=== PATIENT | male | born 1955 | race Caucasian/White ===

== ENCOUNTER 2016-08-09 04:14 | Inpatient (IN) | payer OTHER ==
[~2016-08-09] VITALS: Ht 170.2 cm; Wt 63.4 kg
[~2016-08-09 04:14] MED LIST: BECL8.7A5 INH
[2016-08-09] MEDS ORDERED: ACETAMINOPHEN 325 MG TAB PO PRN (05:00)
[2016-08-09] MEDS ORDERED: ONDANSETRON 4 MG INJ IV PRN (05:00)
[2016-08-09] MEDS ORDERED: NACL 0.9% 3 ML SYG IV SCH (05:00)
[2016-08-09] MEDS ORDERED: DOCUSATE SODIUM 100 MG CAP PO PRN (05:00)
[2016-08-09] MEDS ORDERED: VANCOMYCIN IV PER PHARMACY XX SCH (05:00)
[2016-08-09 05:15] VITALS: BP 132/73; PULSE 54; RESP 20; Ht 170.2 cm; Wt 63.4 kg
--- NOTE | 2016-08-09 05:16 | HP ---
Date/Time of Note Date/Time of Note DATE: 08/09/16 TIME: 05:08 Assessment/Plan VTE Prophylaxis VTE Prophylaxis Intervention: heparin Assessment/Plan Assessment/Plan 60 yo male with a past medical history of asthma, who presents with right leg pain and redness. 1. Right lower extremity - cellulitis/abscess - will admit the patient to med/ surg, continue with IV antibiotics, f/u cultures from [facility], pain management, if worsening consider MRI and consult to podiatry/ID. 2. Asthma - mild intermittent - prn albuterol 3. GI ppx - pepcid 4. DVT ppx - heparin answered all of his questions. as per clinical course. this history and physical took greater then 45 minutes to complete HPI/ROS Admit Date/Time Admit Date/Time Aug 09, 2016 at 04:14 Hx of Present Illness 60 yo male with a past medical history of asthma, who presents with right leg pain and redness. The pain is 10/10, surrounding his lower leg, with redness that has been going on for the last 10 days. 10 days prior to admission, the patient had slipped and sustained a fall causing him to hit his leg against a pipe in the bathroom. He noticed erythema and swelling. Went to ER in [facility], was prescribed keflex and sent home. He did better initially, but noticed that it got worse. He went back to the ER 7 days later, and had been prescribed Clindamycin. 2 days after that, currently, the swelling and redness did not subside. He went to [facility], had been seen by the ER there, transferred to [facility] for insurance purposes. Subsequently has chills. Otherwise denies any chest pain, shortness of breath, loss of consciousness, headaches, urinary/bowel irregularities, fevers or other constitutional symptoms. [facility] Labs: H/H: 12.9/38.6, WBC: 9.3 CT Right lower extremity - focal soft tissue swelling in the anterior aspect of the right lower extremity distal tibia with focal collection of fluid - that was I and D in the ER. CXR: no acute cardiopulmonary disease ROS 14 point review of systems completed, please refer to HPI for any positive findings PMH/Family/Social Past Medical History Asthma Past Surgical History meniscal repairs x 2, finger repair Family History Significant Family History: no pertinent family hx Social History Alcohol Use: none Smoking Status: Current every day smoker Drug Use: none Exam/Review of Systems Exam Exam Gen Lisbeth: moderate distress 2/2 to right sarabia pain, AAOx4 HEENT: NC/AT, PERRLA, EOMI, no pharyngeal erythema, no tonsillar exudates, no lymphadenopathy, no JVD, no carotid bruits NECK: supple, no thyromegaly THORAX: symmetrical, no obvious deformities CV: S1S2, RRR, no M/G/R Lungs: CTAB no W/C/R/R Abd: soft, NT/ND, +BS, no rebound, no guarding, neg HSM EXT: right sarabia erythema, has serous sanguineous fluid draining, no purulent discharge noted, warmth to touch, left leg within normal limits Neuro: CN II-XII grossly intact, no focal deficits Psych: good mentation, alert and oriented, good mood and affect Skin: C/D/I Medications Medications Current Medications Ondansetron HCl (Zofran Inj) 4 mg Q6H PRN IV NAUSEA AND/OR VOMITING; Start at 05:00 Acetaminophen (Tylenol Tab) 650 mg Q6H PRN PO PAIN LEVEL 1-3 OR FEVER; Start at 05:00 Acetaminophen/ Hydrocodone Bitart ([place] (5/325)) 1 tab Q6H PRN PO MODERATE PAIN LEVEL 4-6; Start 08/09/16 at 05:00 Morphine Sulfate (morphine) 2 mg Q4H PRN IV SEVERE PAIN LEVEL 7-10; Start 08/09 at 05:00 Docusate Sodium (Colace) 100 mg Q12H PRN PO CONSTIPATION; Start 08/09/16 at 05: 00 Famotidine (Pepcid) 20 mg Q12 PO ; Start 08/09/16 at 09:00 Heparin Sodium (Porcine) 5000 unit 5,000 unit Q12 SC ; Start 08/09/16 at 09:00 Piperacillin Sod/ Tazobactam Sod (Zosyn 3.375gm/ 100 ml (Pmx)) 100 ml @ 200 mls /hr Q6 IVPB ; Start 08/09/16 at 06:00 JENISE SANCHEZ MD Aug 09, 2016 05:16
[2016-08-09] MEDS: morphine 2 MG INJ IV PRN ×5 (05:21→22:42)
[2016-08-09] MEDS: PIPER-TAZO 3.375 GM IV (PMX) 100 ML IVPB SCH ×4 (05:22→23:14)
[2016-08-09] MEDS ORDERED: VANCOMYCIN 1 GM in NS 250 ML IVPB SCH (06:00)
[2016-08-09] MEDS ORDERED: INFLUENZA VIRUS VACCINE 0.5 ML SYG IM* ONE (07:30)
[2016-08-09 07:33] VITALS: BP 124/58; RESP 18
[2016-08-09] MEDS: HYDROCODONE/APAP (5/325) TAB PO PRN ×3 (09:13→21:28)
[2016-08-09] MEDS: HEPARIN 5,000 UNIT/0.5 ML SYG SC SCH ×2 (09:14→20:20)
[2016-08-09] MEDS: FAMOTIDINE 20 MG TAB PO SCH ×2 (09:14→20:19)
[2016-08-09 11:22] VITALS: RESP 18
[2016-08-09 20:25] VITALS: BP 109/59; RESP 21
[2016-08-10] MEDS: morphine 2 MG INJ IV PRN ×5 (03:28→21:40)
[2016-08-10] MEDS: PIPER-TAZO 3.375 GM IV (PMX) 100 ML IVPB SCH ×4 (05:26→23:22)
[2016-08-10 05:55] LABS: ALBUMIN 3.2 g/dl (3.3-4.9)
[2016-08-10 05:56] LABS: POTASSIUM 4.1 mmol/L (3.5-5.1)
[2016-08-10 05:58] LABS: BILIRUBIN,INDIRECT 0.3 mg/dl (0-1.1); BILIRUBIN,TOTAL 0.3 mg/dl (0.2-1.3); CREATININE 0.79 mg/dl (0.61-1.24)
[2016-08-10 05:59] LABS: ALBUMIN/GLOBULIN RATIO 1.28; CALCIUM 8.8 mg/dl (8.4-10.2); TOTAL PROTEIN 5.7 g/dl (6.1-8.1)
[2016-08-10 07:03] LABS: BASOPHILS % 1.1 % (0.0-2.0); EOSINOPHILS # 0.1 10^3/ul (0.0-0.5); EOSINOPHILS % 2.9 % (0.0-7.0); HEMATOCRIT 34.5 % (42.0-52.0); HEMOGLOBIN 11.5 g/dl (14.0-18.0); LYMPHOCYTES # 1.3 10^3/ul (0.8-2.9); LYMPHOCYTES % 28.2 % (15.0-51.0); MEAN CORPUSCULAR HEMOGLOBIN 30.9 pg (29.0-33.0); MEAN CORPUSCULAR HGB CONC 33.3 g/dl (32.0-37.0); MEAN CORPUSCULAR VOLUME 92.7 fl (82.0-101.0); MEAN PLATELET VOLUME 8.5 fl (7.4-10.4); MONOCYTE # 0.4 10^3/ul (0.3-0.9); MONOCYTES % 8.8 % (0.0-11.0); NEUTROPHIL # 2.7 10^3/ul (1.6-7.5); PLATELET COUNT 279 10^3/UL (140-440); RED BLOOD COUNT 3.72 10^6/ul (4.70-6.10); RED CELL DISTRIBUTION WIDTH 14.8 % (11.5-14.5); UNCORRECTED WBC 4.5 10^3/ul (4.8-10.8); WHITE BLOOD COUNT 4.5 10^3/ul (4.8-10.8)
[2016-08-10 07:26] VITALS: BP 121/74; RESP 20
[2016-08-10 07:28] LABS: CONDITION 1; LH ANALYZER COMMENTS 1
[2016-08-10] MEDS: FAMOTIDINE 20 MG TAB PO SCH ×2 (09:29→20:19)
[2016-08-10] MEDS: HEPARIN 5,000 UNIT/0.5 ML SYG SC SCH ×2 (09:32→20:19)
[2016-08-10] MEDS: HYDROCODONE/APAP (5/325) TAB PO PRN (09:32)
--- NOTE | 2016-08-10 14:59 | PN ---
Date/Time of Note Date/Time of Note DATE: 08/10/16 TIME: 14:57 Assessment/Plan VTE Prophylaxis VTE Prophylaxis Intervention: heparin Lines/Catheters IV Catheter Type (from Nrsg): Saline Lock Assessment/Plan Chief Complaint/Hosp Course 1. Right lower extremity - cellulitis/abscess -cont Vanco, Zosyn -ID Consult -f/u cultures from [facility], pain management, if worsening consider MRI 2. Asthma - mild intermittent - prn albuterol 3. GI ppx - pepcid 4. DVT ppx - heparin Problems: Subjective 24 Hr Interval Summary Musculoskeletal: bone/joint pain Exam/Review of Systems Vital Signs Vitals Vital Signs Date Time Temp Pulse Resp B/P Pulse Ox O2 Delivery O2 Flow Rate FiO2 08/10/16 07:26 98.4 53 20 121/74 96 08/09/16 05:15 Room Air Intake and Output 08/09/16 08/09/16 08/10/16 15:00 23:00 07:00 Intake Total 1050 ml 1520 ml Balance 1050 ml 1520 ml Exam Constitutional: alert, oriented Respiratory: clear to auscultation Cardiovascular: regular rate and rhythm Gastrointestinal: soft, No distended Musculoskeletal: No nl extremities to inspection Results Result Diagram: 08/10/16 0456 08/10/16 0456 Results 24 hrs Laboratory Tests Test 08/10/16 04:56 Alanine Aminotransferase (ALT/SGPT) 34 Albumin 3.2 L Albumin/Globulin Ratio 1.28 Alkaline Phosphatase 52 Anion Gap 14 Aspartate Amino Transf (AST/SGOT) 23 Basophils # 0.0 Basophils % 1.1 Blood Morphology Comment Blood Urea Nitrogen 14 Calcium Level 8.8 Carbon Dioxide Level 27 Chloride Level 107 Creatinine 0.79 Direct Bilirubin 0.00 Eosinophils # 0.1 Eosinophils % 2.9 Globulin 2.50 Glucose Level 91 Hematocrit 34.5 L Hemoglobin 11.5 L Indirect Bilirubin 0.3 Lymphocytes # 1.3 Lymphocytes % 28.2 Magnesium Level 2.1 Mean Corpuscular Hemoglobin 30.9 Mean Corpuscular Hemoglobin Concent 33.3 Mean Corpuscular Volume 92.7 Mean Platelet Volume 8.5 Monocytes # 0.4 Monocytes % 8.8 Neutrophils # 2.7 Neutrophils % 59.0 Nucleated Red Blood Cells # 0.0 Nucleated Red Blood Cells % 0.0 Platelet Count 279 Potassium Level 4.1 Red Blood Count 3.72 L Red Cell Distribution Width 14.8 H Sodium Level 144 Total Bilirubin 0.3 Total Protein 5.7 L White Blood Count 4.5 #L Medications Medications Current Medications Ondansetron HCl (Zofran Inj) 4 mg Q6H PRN IV NAUSEA AND/OR VOMITING; Start at 05:00 Acetaminophen (Tylenol Tab) 650 mg Q6H PRN PO PAIN LEVEL 1-3 OR FEVER; Start at 05:00 Docusate Sodium (Colace) 100 mg Q12H PRN PO CONSTIPATION; Start 08/09/16 at 05: 00 Famotidine (Pepcid) 20 mg Q12 PO Last administered on 08/10/16 09:29; Admin Dose 20 MG; Start 08/09/16 at 09:00 Heparin Sodium (Porcine) 5000 unit 5,000 unit Q12 SC Last administered on 09:32; Admin Dose 5,000 UNIT; Start 08/09/16 at 09:00 Piperacillin Sod/ Tazobactam Sod (Zosyn 3.375gm/ 100 ml (Pmx)) 100 ml @ 200 mls /hr Q6 IVPB Last administered on 08/10/16 11:58; Admin Dose 200 MLS/HR; Start 08/09/16 at 06:00 Miscellaneous Information (*Rx Drug Level Order Reminder*) VANCOMYCIN TROUGH AT 1600 ONCE ONCE XX ; Start 08/10/16 at 16:00; Stop 08/10/16 at 16:01 Morphine Sulfate (morphine) 4 mg Q4H PRN IV SEVERE PAIN LEVEL 7-10 Last administered on 08/10/16 11:59; Admin Dose 4 MG; Start 08/09/16 at 13:00 Acetaminophen/ Hydrocodone Bitart ([place] (10325)) 1 tab Q6H PRN PO MODERATE PAIN LEVEL 4-6; Start 08/10/16 at 13:00 KATIE WOODS Aug 10, 2016 14:59
[2016-08-10] MEDS: HYDROCODONE/APAP (10/325) TAB PO PRN ×2 (15:35→21:43)
[2016-08-10] MEDS: VANCOMYCIN 1 GM in NS 250 ML IVPB SCH (18:01)
[2016-08-10 20:31] VITALS: BP 141/59; RESP 17
--- NOTE | 2016-08-10 20:34 | CONS ---
DATE OF ADMISSION: 08/09/2016 DATE OF CONSULTATION: 08/10/2016 TYPE OF CONSULTATION: Infectious Disease. REASON FOR CONSULTATION: Antibiotic management. HISTORY OF PRESENT ILLNESS: Alberto Mares is a 60-year-old male with a number of problems who presen ts with right leg pain and redness. His past problems include asthma. Acutely, he presents with ri ght leg pain and redness with pain 10/10 surrounding his lower leg with redness. This has been mason g on for the last 10 days. The patient had slipped and sustained a fall, causing him to hit his leg against a pipe in the bathroom. He noticed the erythema and swelling, went to the ER at [facility], was prescribed Keflex and sent home. He did initially better. He went back to 7 days [facility], was prescribed clindamycin. Because of increasing swelling, he went back to [place], transf erred to [facility] for insurance reasons. At [place], his white count was 9.3, H and H of 12.[address] scan of the right lower extremity showed focal soft-tissue swelling in the an terior aspect of the right lower extremity, distal tibia with focal collection of fluid that was I a nd D'd in the ER. Chest x-ray: No acute pulmonary disease. PAST MEDICAL HISTORY: Asthma. PAST SURGICAL HISTORY: Meniscal repair x2 and a finger repair. FAMILY HISTORY: Noncontributory. SOCIAL HISTORY: He is an everyday smoker, does not drink or abuse drugs. ALLERGIES: NONE TO PENICILLIN, SULFA OR FOODS. MEDICATIONS: Per chart. REVIEW OF SYSTEMS: As per HPI. PHYSICAL EXAMINATION: GENERAL: The patient is a well-developed, well-nourished male who is complaining of pain in the rig ht anterior tibial area. VITAL SIGNS: Stable. He is afebrile. SKIN: Without generalized rash. HEENT: Within normal limits. NECK: Supple. LYMPH NODES: None palpable. CHEST: Decreased breath sounds at the bases. HEART: Without murmur or gallop. ABDOMEN: Soft, nontender without organosplenomegaly or masses. EXTREMITIES: He has erythema of the right anterior tibial area. He has serosanguineous fluid drain ing. No purulent discharge. RECTAL AND GENITAL: Deferred. NEUROLOGIC: No focal neurological abnormalities. IMPRESSION AND PLAN: The patient is on vancomycin and Zosyn. If there is something to culture, it should be cultured in terms of the wound. He has a wound care consult. I will dictate my findings to the hospitalists. Dictated By: RAEGAN CARRILLO MD, JD/CIELO Conf#: [id number] DID#: [id number]
[2016-08-11] MEDS: morphine 2 MG INJ IV PRN ×6 (02:09→23:54)
[2016-08-11] MEDS: HYDROCODONE/APAP (10/325) TAB PO PRN ×4 (03:37→22:37)
[2016-08-11] MEDS: VANCOMYCIN 1 GM in NS 250 ML IVPB SCH ×2 (04:28→16:09)
[2016-08-11] MEDS: PIPER-TAZO 3.375 GM IV (PMX) 100 ML IVPB SCH ×5 (06:36→23:54)
[2016-08-11 07:05] LABS: BASOPHILS % 1.1 % (0.0-2.0); EOSINOPHILS # 0.2 10^3/ul (0.0-0.5); EOSINOPHILS % 3.8 % (0.0-7.0); HEMATOCRIT 33.8 % (42.0-52.0); HEMOGLOBIN 11.2 g/dl (14.0-18.0); LYMPHOCYTES # 1.7 10^3/ul (0.8-2.9); LYMPHOCYTES % 39.2 % (15.0-51.0); MEAN CORPUSCULAR HEMOGLOBIN 30.7 pg (29.0-33.0); MEAN CORPUSCULAR HGB CONC 33.2 g/dl (32.0-37.0); MEAN CORPUSCULAR VOLUME 92.6 fl (82.0-101.0); MEAN PLATELET VOLUME 8.3 fl (7.4-10.4); MONOCYTE # 0.5 10^3/ul (0.3-0.9); MONOCYTES % 11.8 % (0.0-11.0); NEUTROPHIL # 1.9 10^3/ul (1.6-7.5); NEUTROPHILS % 44.1 % (39.0-77.0); PLATELET COUNT 259 10^3/UL (140-440); RED BLOOD COUNT 3.65 10^6/ul (4.70-6.10); RED CELL DISTRIBUTION WIDTH 14.7 % (11.5-14.5); UNCORRECTED WBC 4.3 10^3/ul (4.8-10.8); WHITE BLOOD COUNT 4.3 10^3/ul (4.8-10.8)
[2016-08-11 07:09] LABS: CONDITION 1; LH ANALYZER COMMENTS 1
[2016-08-11 07:15] LABS: POTASSIUM 4.2 mmol/L (3.5-5.1)
[2016-08-11 07:17] LABS: CREATININE 0.83 mg/dl (0.61-1.24)
[2016-08-11 07:18] LABS: CALCIUM 8.9 mg/dl (8.4-10.2)
[2016-08-11] MEDS: HEPARIN 5,000 UNIT/0.5 ML SYG SC SCH ×2 (08:33→21:05)
[2016-08-11] MEDS: FAMOTIDINE 20 MG TAB PO SCH ×2 (08:34→21:03)
[2016-08-11 08:36] VITALS: BP 132/84; RESP 18
--- NOTE | 2016-08-11 13:42 | PN ---
Date/Time of Note Date/Time of Note DATE: 08/11/16 TIME: 13:39 Assessment/Plan VTE Prophylaxis VTE Prophylaxis Intervention: heparin Lines/Catheters IV Catheter Type (from Nrs): Saline Lock Assessment/Plan Chief Complaint/Hosp Course 1. Right lower extremity - cellulitis/abscess -cont Vanco, Zosyn, pain control -ID Consult appreciated -f/u cultures from [facility], pain management 2. Asthma - mild intermittent - prn albuterol 3. GI ppx - pepcid 4. DVT ppx - heparin Problems: Subjective 24 Hr Interval Summary Musculoskeletal: bone/joint pain Exam/Review of Systems Vital Signs Vitals Vital Signs Date Time Temp Pulse Resp B/P Pulse Ox O2 Delivery O2 Flow Rate FiO2 08/11/16 08:36 98.6 96 18 132/84 98 08/09/16 05:15 Room Air Intake and Output 08/10/16 08/10/16 08/11/16 15:00 23:00 07:00 Intake Total 100 ml 2025 ml 770 ml Balance 100 ml 2025 ml 770 ml Exam Constitutional: alert, oriented Respiratory: clear to auscultation Cardiovascular: regular rate and rhythm Gastrointestinal: soft, No distended Musculoskeletal: No nl extremities to inspection Results Result Diagram: 08/11/16 0605 08/11/16 0605 Results 24 hrs Laboratory Tests Test 08/10/16 16:40 08/11/16 06:05 Vancomycin Level Trough < 5.0 L Anion Gap 14 Basophils # 0.0 Basophils % 1.1 Blood Morphology Comment Blood Urea Nitrogen 14 Calcium Level 8.9 Carbon Dioxide Level 28 Chloride Level 106 Creatinine 0.83 Eosinophils # 0.2 Eosinophils % 3.8 Glucose Level 83 Hematocrit 33.8 L Hemoglobin 11.2 L Lymphocytes # 1.7 Lymphocytes % 39.2 Mean Corpuscular Hemoglobin 30.7 Mean Corpuscular Hemoglobin Concent 33.2 Mean Corpuscular Volume 92.6 Mean Platelet Volume 8.3 Monocytes # 0.5 Monocytes % 11.8 H Neutrophils # 1.9 Neutrophils % 44.1 Nucleated Red Blood Cells # 0.0 Nucleated Red Blood Cells % 0.0 Platelet Count 259 Potassium Level 4.2 Red Blood Count 3.65 L Red Cell Distribution Width 14.7 H Sodium Level 144 White Blood Count 4.3 L Medications Medications Current Medications Ondansetron HCl (Zofran Inj) 4 mg Q6H PRN IV NAUSEA AND/OR VOMITING; Start at 05:00 Acetaminophen (Tylenol Tab) 650 mg Q6H PRN PO PAIN LEVEL 1-3 OR FEVER; Start at 05:00 Docusate Sodium (Colace) 100 mg Q12H PRN PO CONSTIPATION; Start 08/09/16 at 05: 00 Famotidine (Pepcid) 20 mg Q12 PO Last administered on 08/11/16 08:34; Admin Dose 20 MG; Start 08/09/16 at 09:00 Heparin Sodium (Porcine) 5000 unit 5,000 unit Q12 SC Last administered on 08:33; Admin Dose 5,000 UNIT; Start 08/09/16 at 09:00 Piperacillin Sod/ Tazobactam Sod (Zosyn 3.375gm/ 100 ml (Pmx)) 100 ml @ 200 mls /hr Q6 IVPB Last administered on 08/11/16 11:18; Admin Dose 200 MLS/HR; Start 08/09/16 at 06:00 Morphine Sulfate (morphine) 4 mg Q4H PRN IV SEVERE PAIN LEVEL 7-10 Last administered on 08/11/16 10:52; Admin Dose 4 MG; Start 08/09/16 at 13:00 Acetaminophen/ Hydrocodone Bitart 1 tab 1 tab Q6H PRN PO MODERATE PAIN LEVEL 4- 6 Last administered on 08/11/16 09:50; Admin Dose 1 TAB; Start 08/10/16 at 13:00 Vancomycin HCl (Vancocin) 250 ml @ 125 mls/hr Q12H IVPB Last administered on 04:28; Admin Dose 125 MLS/HR; Start 08/10/16 at 17:00 Miscellaneous Information (*Rx Drug Level Order Reminder*) VANCOMYCIN TROUGH LEVEL... ONCE ONCE XX ; Start 08/12/16 at 04:00; Stop 08/12/16 at 04:01 KATIE WOODS Aug 11, 2016 13:42
[2016-08-11 19:25] VITALS: BP 138/76; RESP 18
--- NOTE | 2016-08-11 21:34 | PN ---
DATE: 08/11/2016 SUBJECTIVE: No acute changes. The patient is alert, looks comfortable, complaining of right lower extremity pain. He is in no distress. White blood cell count today 4.3, no shift, no bands. BUN 14, creatinine 0.83. ANTIMICROBIALS: 1. Vancomycin. 2. Zosyn. ALLERGIES: 1. CIPRO. 2. LEVAQUIN. 3. SULFA. PHYSICAL EXAMINATION: GENERAL: This is well-nourished, well-developed middle-aged white elderly man who is alert, in no d istress. HEENT: Head atraumatic, normocephalic. Sclerae anicteric. Buccal mucosa pink. NECK: Supple. Trachea midline. CHEST: Rise symmetrical. Breath sounds clear. HEART: S1, S2. ABDOMEN: Soft. Bowel tones present. EXTREMITIES: Right foot erythema and some swelling at the lower part below knee. ASSESSMENT: 1. Right lower extremity cellulitis status post traumatic injury. 2. History of asthma. 3. Anemia. 4. ALLERGY TO CIPRO, LEVAQUIN AND SULFA. PLAN: The patient remains stable. We will continue him on current antimicrobials. Keep right uppe r extremity elevated, swab nares for MRSA and await for clinical improvement. Above was discussed w ith patient in detail at bedside. Dictated By: STU BLAIR BLANKBOOK STITCHING MACHINE OPERATOR for RAEGAN RAGSDALE/CIELO Conf#: [id number] DID#: [id number]
[2016-08-12 04:11] LABS: BASOPHIL # 0.1 10^3/ul (0.0-0.1); EOSINOPHILS # 0.2 10^3/ul (0.0-0.5); EOSINOPHILS % 2.9 % (0.0-7.0); HEMATOCRIT 35.4 % (42.0-52.0); HEMOGLOBIN 11.8 g/dl (14.0-18.0); LYMPHOCYTES # 1.9 10^3/ul (0.8-2.9); LYMPHOCYTES % 33.1 % (15.0-51.0); MEAN CORPUSCULAR HEMOGLOBIN 30.8 pg (29.0-33.0); MEAN CORPUSCULAR HGB CONC 33.5 g/dl (32.0-37.0); MEAN CORPUSCULAR VOLUME 92.1 fl (82.0-101.0); MEAN PLATELET VOLUME 7.7 fl (7.4-10.4); MONOCYTE # 0.5 10^3/ul (0.3-0.9); MONOCYTES % 8.2 % (0.0-11.0); NEUTROPHIL # 3.1 10^3/ul (1.6-7.5); NEUTROPHILS % 54.8 % (39.0-77.0); PLATELET COUNT 278 10^3/UL (140-440); RED BLOOD COUNT 3.84 10^6/ul (4.70-6.10); RED CELL DISTRIBUTION WIDTH 14.5 % (11.5-14.5); UNCORRECTED WBC 5.7 10^3/ul (4.8-10.8); WHITE BLOOD COUNT 5.7 10^3/ul (4.8-10.8)
[2016-08-12] MEDS: morphine 2 MG INJ IV PRN ×4 (04:11→17:01)
[2016-08-12 04:43] LABS: CONDITION 1; LH ANALYZER COMMENTS 1
[2016-08-12] MEDS: PIPER-TAZO 3.375 GM IV (PMX) 100 ML IVPB SCH ×2 (04:48→11:35)
[2016-08-12 04:59] LABS: POTASSIUM 4.3 mmol/L (3.5-5.1)
[2016-08-12 05:02] LABS: CREATININE 0.87 mg/dl (0.61-1.24)
[2016-08-12] MEDS: HYDROCODONE/APAP (10/325) TAB PO PRN ×3 (05:28→19:14)
[2016-08-12] MEDS: VANCOMYCIN 1 GM in NS 250 ML IVPB SCH ×2 (05:56→16:53)
[2016-08-12 07:55] VITALS: BP 112/60; RESP 16
[2016-08-12] MEDS: FAMOTIDINE 20 MG TAB PO SCH (08:41)
[2016-08-12] MEDS: HEPARIN 5,000 UNIT/0.5 ML SYG SC SCH (08:43)
--- NOTE | 2016-08-12 15:03 | CONS ---
Date/Time of Note Date/Time of Note DATE: 08/12/16 TIME: 15:02 Assessment/Plan Assessment/Plan Chief Complaint/Hosp Course SUBJECTIVE: No acute changes. The patient is alert, looks comfortable, complaining of right lower extremity pain. He is in no distress. ANTIMICROBIALS: 1. Vancomycin. 2. Zosyn. ALLERGIES: 1. CIPRO. 2. LEVAQUIN. 3. SULFA. PHYSICAL EXAMINATION: GENERAL: This is well-nourished, well-developed middle-aged white elderly man who is alert, in no distress. HEENT: Head atraumatic, normocephalic. Sclerae anicteric. Buccal mucosa pink. NECK: Supple. Trachea midline. CHEST: Rise symmetrical. Breath sounds clear. HEART: S1, S2. ABDOMEN: Soft. Bowel tones present. EXTREMITIES: Right foot erythema and some swelling at the lower part below knee. ASSESSMENT: 1. Right lower extremity cellulitis status post traumatic injury. 2. History of asthma. 3. Anemia. 4. ALLERGY TO CIPRO, LEVAQUIN AND SULFA. PLAN: The patient remains stable. Wound cx from another facility negative, ok dc on oral Zyvox or Doxycycline [facility] staff Problems: Consultation Date/Type/Reason Admit Date/Time Aug 09, 2016 at 04:14 Initial Consult Date Type of Consultation: id Exam/Review of Systems Vital Signs Vitals Vital Signs Date Time Temp Pulse Resp B/P Pulse Ox O2 Delivery O2 Flow Rate FiO2 08/12/16 07:55 98.0 50 16 112/60 97 08/09/16 05:15 Room Air Intake and Output 08/11/16 08/11/16 08/12/16 15:00 23:00 07:00 Intake Total 100 ml 350 ml 600 ml Balance 100 ml 350 ml 600 ml Results Result Diagram: 08/12/16 0355 08/12/16 0355 Results 24 hrs Laboratory Tests Test 08/12/16 03:55 Anion Gap 16 Basophils # 0.1 Basophils % 1.0 Blood Morphology Comment Blood Urea Nitrogen 20 Calcium Level 9.0 Carbon Dioxide Level 26 Chloride Level 106 Creatinine 0.87 Eosinophils # 0.2 Eosinophils % 2.9 Glucose Level 91 Hematocrit 35.4 L Hemoglobin 11.8 L Lymphocytes # 1.9 Lymphocytes % 33.1 Mean Corpuscular Hemoglobin 30.8 Mean Corpuscular Hemoglobin Concent 33.5 Mean Corpuscular Volume 92.1 Mean Platelet Volume 7.7 Monocytes # 0.5 Monocytes % 8.2 Neutrophils # 3.1 Neutrophils % 54.8 Nucleated Red Blood Cells # 0.0 Nucleated Red Blood Cells % 0.0 Platelet Count 278 Potassium Level 4.3 Red Blood Count 3.84 L Red Cell Distribution Width 14.5 Sodium Level 144 Vancomycin Level Trough 10.5 White Blood Count 5.7 # Medications Medications Current Medications Ondansetron HCl (Zofran Inj) 4 mg Q6H PRN IV NAUSEA AND/OR VOMITING; Start at 05:00 Acetaminophen (Tylenol Tab) 650 mg Q6H PRN PO PAIN LEVEL 1-3 OR FEVER; Start at 05:00 Docusate Sodium (Colace) 100 mg Q12H PRN PO CONSTIPATION; Start 08/09/16 at 05: 00 Famotidine (Pepcid) 20 mg Q12 PO Last administered on 08/12/16 08:41; Admin Dose 20 MG; Start 08/09/16 at 09:00 Heparin Sodium (Porcine) 5000 unit 5,000 unit Q12 SC Last administered on 08:43; Admin Dose 5,000 UNIT; Start 08/09/16 at 09:00 Piperacillin Sod/ Tazobactam Sod (Zosyn 3.375gm/ 100 ml (Pmx)) 100 ml @ 200 mls /hr Q6 IVPB Last administered on 08/12/16 11:35; Admin Dose 200 MLS/HR; Start 08/09/16 at 06:00 Morphine Sulfate (morphine) 4 mg Q4H PRN IV SEVERE PAIN LEVEL 7-10 Last administered on 08/12/16 13:07; Admin Dose 4 MG; Start 08/09/16 at 13:00 Acetaminophen/ Hydrocodone Bitart 1 tab 1 tab Q6H PRN PO MODERATE PAIN LEVEL 4- 6 Last administered on 08/12/16 11:36; Admin Dose 1 TAB; Start 08/10/16 at 13:00 Vancomycin HCl (Vancocin) 250 ml @ 125 mls/hr Q12H IVPB Last administered on 05:56; Admin Dose 125 MLS/HR; Start 08/10/16 at 17:00 STU BLAIR NP Aug 12, 2016 15:03
[2016-08-12] MEDS ORDERED: DOXY100T20 PO (16:50)
[2016-08-12] MEDS ORDERED: HYDR-906 PO (16:50)
--- NOTE | 2016-08-12 16:58 | DS ---
Date/Time of Note Date/Time of Note DATE: 08/12/16 TIME: 16:51 Discharge Summary Admission/Discharge Info Admit Date/Time Aug 09, 2016 at 04:14 Discharge Date/Time Final Diagnosis 1. Right lower extremity - cellulitis, doxycycline 10 days, follow up with PCP 2. Asthma -stable Patient Condition: Stable Hx of Present Illness 60 yo male with a past medical history of asthma, who presents with right leg pain and redness. The pain is 10/10, surrounding his lower leg, with redness that has been going on for the last 10 days. 10 days prior to admission, the patient had slipped and sustained a fall causing him to hit his leg against a pipe in the bathroom. He noticed erythema and swelling. Went to ER in [facility], was prescribed keflex and sent home. He did better initially, but noticed that it got worse. He went back to the ER 7 days later, and had been prescribed Clindamycin. 2 days after that, currently, the swelling and redness did not subside. He went to [facility], had been seen by the ER there, transferred to [facility] for insurance purposes. Subsequently has chills. Otherwise denies any chest pain, shortness of breath, loss of consciousness, headaches, urinary/bowel irregularities, fevers or other constitutional symptoms. Hospital Course Physical exam revealed a erythemous lesion at right sarabia with swelling and tenderness. Consultation with ID, patient will be discharged with doxycycline and follow up with PCP. He is instructed to keep right lower extremity elevated. Home Meds Active Scripts Hydrocodone/Acetaminophen ([place] 5-325 Tablet) 1 Each Tablet, 1 EACH PO Q4H, # 20 TAB Prov:MAURICIO NOEL MD 08/12/16 Doxycycline Hyclate* (Doxycycline Hyclate*) 100 Mg Tablet.dr, 100 MG PO BID for 10 Days, TAB Prov:MAURICIO NOEL MD 08/12/16 Reported Medications Beclomethasone Dip* (Qvar 80*) 7.3 Gm Inha, 2 PUFF INH BID, INH 04/26/15 Follow-up Plan PCP one week Pending Labs Laboratory Tests Test 08/12/16 03:55 Anion Gap 16 (8-16) Basophils # 0.110^3/ul (0.0-0.1) Basophils % 1.0% (0.0-2.0) Blood Morphology Comment Blood Urea Nitrogen 20mg/dl (7-20) Calcium Level 9.0mg/dl (8.4-10.2) Carbon Dioxide Level 26mmol/L (21-31) Chloride Level 106mmol/L (97-110) Creatinine 0.87mg/dl (0.61-1.24) Eosinophils # 0.210^3/ul (0.0-0.5) Eosinophils % 2.9% (0.0-7.0) Glucose Level 91mg/dl (70-220) Hematocrit 35.4% (42.0-52.0) Hemoglobin 11.8g/dl (14.0-18.0) Lymphocytes # 1.910^3/ul (0.8-2.9) Lymphocytes % 33.1% (15.0-51.0) Mean Corpuscular Hemoglobin 30.8pg (29.0-33.0) Mean Corpuscular Hemoglobin Concent 33.5g/dl (32.0-37.0) Mean Corpuscular Volume 92.1fl (82.0-101.0) Mean Platelet Volume 7.7fl (7.4-10.4) Monocytes # 0.510^3/ul (0.3-0.9) Monocytes % 8.2% (0.0-11.0) Neutrophils # 3.110^3/ul (1.6-7.5) Neutrophils % 54.8% (39.0-77.0) Nucleated Red Blood Cells # 0.010^3/ul (0.0-0.0) Nucleated Red Blood Cells % 0.0/100WBC (0.0-0.0) Platelet Count 99873^3/UL (140-440) Potassium Level 4.3mmol/L (3.5-5.1) Red Blood Count 3.8410^6/ul (4.70-6.10) Red Cell Distribution Width 14.5% (11.5-14.5) Sodium Level 144mmol/L (135-144) Vancomycin Level Trough 10.5ug/ml (10.0-20.0) White Blood Count 5.710^3/ul (4.8-10.8) MAURICIO NOEL MD Aug 12, 2016 16:58
== END 2016-08-12 19:42 | disposition home or self-care (01) | DRG 603 ==
LOC: PP2 04:14
PROVIDERS: ADMIT Student in an Organized Health Care Education/Training Program; ATTEND Student in an Organized Health Care Education/Training Program
DX: L03.115 Cellulitis of right lower limb (principal); D64.9 Anemia, unspecified; J45.909 Unspecified asthma, uncomplicated; Z88.2 Allergy status to sulfonamides
CPT/HCPCS: 80048; 80053; 80202; 83735; 85025; 90686; J2270; J2543; J3370

== ENCOUNTER 2016-12-10 18:05 | Observation (INO) | payer OTHER ==
[~2016-12-10] VITALS: Ht 165.1 cm; Wt 65.0 kg
[~2016-12-10 18:05] MED LIST changes: +DOXY100T20 PO; +HYDR-906 PO
[2016-12-10 21:12] VITALS: BP 123/73; RESP 20
[2016-12-10] MEDS ORDERED: morphine 2 MG INJ IV ONE (21:45)
--- NOTE | 2016-12-10 23:09 | HP ---
Date/Time of Note Date/Time of Note DATE: 12/10/16 TIME: 23:00 Assessment/Plan VTE Prophylaxis VTE Prophylaxis Intervention: SCD's Assessment/Plan Chief Complaint/Hosp Course This is a 61-year-old male being admitted to the [facility] floor for: #1 intractable abdominal pain: Gastroenteritis versus dyspepsia versus peptic ulcer disease. CT of the abdomen did show possible concern for gastritis. His lab works were essentially within normal values. Will order labs for the a.m. At the current time we will treat patient with Protonix Mylanta and Carafate, if this does not provide any pain relief will consider morphine.. Though I do not want to use morphine he did state that he received relief when getting it at the transfer facility. Will provide patient some bowel rest and keep him n.p.o. Give him IV fluid hydration. As he does have a history of reflux and he does report that he sometimes gets improvement in his pain from eating we will also consult GI for possible inpatient versus outpatient EGD to rule out any ulcers. #2 asthma: Continue Qvar #3 DVT and GI prophylaxis: SCDs, Protonix. Problems: HPI/ROS Admit Date/Time Admit Date/Time Dec 10, 2016 at 20:20 Hx of Present Illness Chief complaint: Epigastric pain 3 days This is a 61-year-old male who presented to the [facility] ER experiencing epigastric pain 3 days. Patient states that he has had similar pains in the past as well. This pain however was getting worse and was epigastric area and was not radiating. Denied any nausea vomiting or fevers. Patient also stated that yesterday he had also developed diarrhea denies any blood in the stool. He does report that a few days ago he did eat a chicken salad from outside which did not taste normal. At the [facility] ER he did receive a GI cocktail however he said that this did not provide him much relief. He was given morphine there which gave him relief. At the present time patient states that his diarrhea has somewhat improved. His pain has also improved however it does return. He does state that at times he notices that when he eats food his epigastric pain actually goes away for a short while and then returns after. Denies any burping or belching. Denies any blood in the diarrhea. He does state that he had an EGD approximately 4 years ago which was normal. Allergies: Contrast dye, ciprofloxacin, iodine, Levaquin, sulfamethoxazole, trimethoprim Medications: Qvar inhaler ROS Const: Negative for fever, chills, weight gain or weight loss, fatigue, or diaphoresis Eyes : No pain discharge or redness or change in visual acuity ENT: No pain, sore throat, congestion, congestion, dysphagia or discharge Respiratory: No shortness of breath, cough, sputum, wheezing, or pleuritic pain Cardiovascular: No chest pain, palpitation, PND, or edema GI : As per HPI Genitourinary: No dysuria, hematuria, flank pain , discharge or CVA tenderness Musculoskeletal: No joint pain, back pain, neck pain, restricted range of motion in neck or joints Skin: No rash, bruising or hives Neuro: No headache, dizziness, syncope, seizure, focal weakness Endocrine: No polyuria, polydipsia, temperature intolerance Psych: No hallucination, depression, anxiety or suicidal ideation PMH/Family/Social Past Medical History Asthma, reflux Past Surgical History Right knee surgery for torn meniscus Family History Significant Family History: hypertension (Mom) Social History Alcohol Use: other (drinks about 3 or 4 days a week with 2 or 3 beers at a time.) Smoking Status: Never smoker Drug Use: none Exam/Review of Systems Vital Signs Vitals Vital Signs Date Time Temp Pulse Resp B/P Pulse Ox O2 Delivery O2 Flow Rate FiO2 12/10/16 21:12 97.8 71 20 123/73 97 Exam Exam General: Patient is well-developed well-nourished The patient is alert oriented -3 lying comfortably in bed. HEENT: Atraumatic, normocephalic. The pupils are equal, round and reactive. Extraocular motor are intact Neck: Supple with full range of motion. No rigidity or meningismus Chest: Nontender Lungs: Clear to auscultation bilaterally no crackles rales or wheezing Heart: Normal S1-S2, Regular rhythm and rate. No murmur, S3, or S4 Abdomen: Soft, tenderness to deep palpation of the epigastric area, hyperactive bowel sounds in the epigastric area. Extremities: Normal to inspection, no edema no cyanosis Neurologic: Normal mental status, speech normal, cranial nerves II through XII are intact, motor and sensory are intact, no focal weakness Additional Comments Lab values from [facility] please see transfer documents for further information. Labs: hgb 14.4 hematocrit 41, wbc 5.4. plts 230 na 137, k 3.8, chl 98, bicarb 23, bun 13, cr. 0.7, gfr 117., glucose 98, lipase 24, ast 24, alt 24. troponin 0.009 ct ab pelvis: walk thickening and edmea adjacent to proximal stomach may relate to gastritits. KATHERIN TREVINO Dec 10, 2016 23:09
[2016-12-10] MEDS ORDERED: ONDANSETRON 4 MG INJ IV PRN (23:30)
[2016-12-10] MEDS: SUCRALFATE 1 GM TAB PO SCH (23:55)
[2016-12-10] MEDS: AL HYDROX/MG HYDROX/SIMETH 30 ML CUP PO PRN (23:55)
[2016-12-11] MEDS: NACL 0.9% 3 ML SYG IV SCH (00:08)
[2016-12-11 01:12] LABS: ADD UMIC NO; URINE BILIRUBIN (Dip) NEGATIVE (NEGATIVE); URINE BLOOD (Dip) NEGATIVE (NEGATIVE); URINE COLOR LT. YELLOW (YELLOW); URINE GLUCOSE (Dip) NEGATIVE (NEGATIVE); URINE KETONES (Dip) NEGATIVE (NEGATIVE); URINE LEUKOCYTE ESTERASE (Dip) NEGATIVE (NEGATIVE); URINE NITRITE (Dip) NEGATIVE (NEGATIVE); URINE TOTAL PROTEIN (Dip) NEGATIVE (NEGATIVE); URINE UROBILINOGEN (Dip) 0.2 E.U./dL (0.1-1.0)
[2016-12-11 01:36] VITALS: Ht 165.1 cm; Wt 65.0 kg
[2016-12-11] MEDS: morphine 4 MG/ML VIAL IV PRN ×6 (03:47→20:53)
[2016-12-11 05:16] LABS: ADD SCAN DIFF NO
[2016-12-11 05:17] LABS: BASOPHIL # 0.1 10^3/ul (0.0-0.1); BASOPHILS % 1.1 % (0.0-2.0); EOSINOPHILS # 0.1 10^3/ul (0.0-0.5); HEMATOCRIT 40.2 % (42.0-52.0); HEMOGLOBIN 13.6 g/dl (14.0-18.0); LYMPHOCYTES # 1.9 10^3/ul (0.8-2.9); LYMPHOCYTES % 34.1 % (15.0-51.0); MEAN CORPUSCULAR HEMOGLOBIN 30.2 pg (29.0-33.0); MEAN CORPUSCULAR HGB CONC 33.8 g/dl (32.0-37.0); MEAN CORPUSCULAR VOLUME 89.1 fl (82.0-101.0); MEAN PLATELET VOLUME 9.9 fl (7.4-10.4); MONOCYTE # 0.5 10^3/ul (0.3-0.9); MONOCYTES % 8.3 % (0.0-11.0); NEUTROPHILS % 54.3 % (39.0-77.0); PLATELET COUNT 245 10^3/UL (140-415); RED BLOOD COUNT 4.51 10^6/ul (4.70-6.10); RED CELL DISTRIBUTION WIDTH 14.5 % (11.5-14.5); WHITE BLOOD COUNT 5.5 10^3/ul (4.8-10.8)
[2016-12-11 05:43] LABS: ALBUMIN 4.1 g/dl (3.3-4.9); ALBUMIN/GLOBULIN RATIO 1.86; BILIRUBIN,INDIRECT 0.5 mg/dl (0-1.1); BILIRUBIN,TOTAL 0.5 mg/dl (0.2-1.3); CALCIUM 9.2 mg/dl (8.4-10.2); CREATININE 0.8 mg/dl (0.61-1.24); MAGNESIUM 2.1 mg/dl (1.7-2.5); POTASSIUM 4.1 mmol/L (3.5-5.1); TOTAL PROTEIN 6.3 g/dl (6.1-8.1)
[2016-12-11 05:44] LABS: CHOL/HDL RATIO 1.9 RATIO
[2016-12-11] MEDS ORDERED: PANTOPRAZOLE 40 MG INJ IV SCH (06:00)
[2016-12-11] MEDS ORDERED: FENTAnyl 50 MCG/ML VIAL ONE (07:00)
[2016-12-11] MEDS ORDERED: MIDAZOLAM 1 MG/ML 2 ML INJ ONE (07:00)
[2016-12-11] MEDS: SUCRALFATE 1 GM TAB PO SCH ×3 (08:18→21:02)
[2016-12-11] MEDS: MOMETASONE 0.24 GM INHALER INH SCH ×2 (09:17→20:59)
[2016-12-11 09:26] VITALS: BP 110/65; RESP 20
--- NOTE | 2016-12-11 09:32 | PN ---
Date/Time of Note Date/Time of Note DATE: 12/11/16 TIME: 09:30 Assessment/Plan VTE Prophylaxis VTE Prophylaxis Intervention: SCD's Lines/Catheters IV Catheter Type (from Nrsg): Peripheral IV Assessment/Plan Assessment/Plan 61 yo M with pmhx asthma admitted for abd pain. OSH imaging with mild gastritis , labs unremarkable. Given location of pain, consider PUD #abd pain: cont pain meds, GI to see today Prophx: SQH FEN NPO pending GI eval dispo pending GI eval Subjective 24 Hr Interval Summary Free Text/Dictation Pt reports abd pain slightly improved. Now with some constipation. Denies h/o DM2. No vomitting prior to admission Exam/Review of Systems Vital Signs Vitals Vital Signs Date Time Temp Pulse Resp B/P Pulse Ox O2 Delivery O2 Flow Rate FiO2 12/11/16 09:26 97.8 60 20 110/65 96 Intake and Output 12/10/16 12/10/16 12/11/16 15:00 23:00 07:00 Intake Total 490 ml Balance 490 ml Exam nad, laying in bed no mrg lungs clear +ttp over epigastric region no le edema Results Result Diagram: 12/11/16 0419 12/11/16 0419 Results 24 hrs Laboratory Tests Test 12/11/16 04:19 12/11/16 04:35 White Blood Count 5.5 Red Blood Count 4.51 L Hemoglobin 13.6 L Hematocrit 40.2 L Mean Corpuscular Volume 89.1 Mean Corpuscular Hemoglobin 30.2 Mean Corpuscular Hemoglobin Concent 33.8 Red Cell Distribution Width 14.5 Platelet Count 245 Mean Platelet Volume 9.9 # Neutrophils % 54.3 Lymphocytes % 34.1 Monocytes % 8.3 Eosinophils % 2.0 Basophils % 1.1 Nucleated Red Blood Cells % 0.0 Neutrophils # 3.0 Lymphocytes # 1.9 Monocytes # 0.5 Eosinophils # 0.1 Basophils # 0.1 Nucleated Red Blood Cells # 0.0 Sodium Level 142 Potassium Level 4.1 Chloride Level 105 Carbon Dioxide Level 29 Anion Gap 12 Blood Urea Nitrogen 19 Creatinine 0.80 Glucose Level 79 Hemoglobin A1c 5.9 Calcium Level 9.2 Magnesium Level 2.1 Total Bilirubin 0.5 Direct Bilirubin 0.00 Indirect Bilirubin 0.5 Aspartate Amino Transf (AST/SGOT) 27 Alanine Aminotransferase (ALT/SGPT) 40 Alkaline Phosphatase 56 Total Protein 6.3 Albumin 4.1 Globulin 2.20 Albumin/Globulin Ratio 1.86 Triglycerides Level 70 Cholesterol Level 100 LDL Cholesterol, Calculated 34 HDL Cholesterol 52 Cholesterol/HDL Ratio 1.9 Medications Medications Current Medications Sodium Chloride (NS) 1,000 ml @ 60 mls/hr [id number] IV Last administered on 00:00; Admin Dose 60 MLS/HR; Start 12/10/16 at 23:04 Ondansetron HCl (Zofran Inj) 4 mg Q6H PRN IV NAUSEA AND/OR VOMITING; Start 12/10 at 23:30 Morphine Sulfate (morphine) 4 mg Q4H PRN IV SEVERE PAIN LEVEL 7-10 Last administered on 12/11/16 07:48; Admin Dose 4 MG; Start 12/10/16 at 23:30 Pantoprazole (Protonix Iv) 40 mg DAILY@06 IV Last administered on 12/11/16 07: 24; Admin Dose 40 MG; Start 12/11/16 at 06:00 Al Hydrox/Mg Hydrox/Simethicone (Mag-Al Plus) 30 ml Q4H PRN PO GASTROINTESTINAL UPSET Last administered on 12/10/16 23:55; Admin Dose 30 ML; Start 12/10/16 at 23:30 Sucralfate (Carafate) 1 gm Q12 PO Last administered on 12/11/16 08:18; Admin Dose 1 GM; Start 12/10/16 at 23:30 Mometasone Furoate (Asmanex) 1 puff BID INH Last administered on 12/11/16 09:17 ; Admin Dose 1 PUFF; Start 12/11/16 at 09:00 SMITHA DYKES MD Dec 11, 2016 09:32
--- NOTE | 2016-12-11 14:13 | CONS ---
Date/Time of Note Date/Time of Note DATE: 12/11/16 TIME: 14:07 Assessment/Plan Assessment/Plan Additional Assessment/Plan Assessment: Severe epigastric abdominal pain/nausea Rule out GERD/gastritis/peptic ulcer disease/others Diarrhea/currently inactive History of asthma Plan: We will proceed with EGD at this time. The patient was informed of risks, benefits and alternatives. He is agreeable to proceed. Consultation Date/Type/Reason Admit Date/Time Dec 10, 2016 at 20:20 Date of Consultation: Dec 11, 2016 Type of Consultation: Gastroenterology Reason for Consultation Abdominal pain Hx of Present Illness 64-year-old man complaining of approximately 3-5 days of severe epigastric abdominal pain associated with nausea. There has been no vomiting. There is also been some diarrhea which is described as normal in color. There has not been any evidence of hematemesis, melena or hematochezia. There is no fever, chills or diaphoresis. The patient at this time appears comfortable although still having significant epigastric abdominal pain, he states that as long as he is n.p.o. he is more comfortable but when he eats the pain exacerbates significantly. He has had no bowel movements today. His hemoglobin and hematocrit are adequate at this time. The patient has had similar episodes but not to this severity in the past , he states he underwent endoscopic examination approximately 5 years ago but he knows the results, he does state that he has never been diagnosed peptic ulcer disease. At this time the patient will be evaluated with esophagogastroduodenoscopy and further recommendation will depend on findings. The patient was informed of the procedure including risks, benefits and alternatives. He is agreeable to proceed Constitutional: improved, no complaints Eyes: no complaints ENT: no complaints Respiratory: no complaints Cardiovascular: no complaints Gastrointestinal: decreased appetite, diarrhea (Nonbloody), nausea, pain ( Epigastric), No vomiting Genitourinary: no complaints Musculoskeletal: no complaints Skin: no complaints Neurologic: no complaints Endocrine: no complaints Lymphatic: no complaints Psychological: nl mood/affect, no complaints Immunologic: no complaints Past Medical History Medical History: other (Asthma) Past Surgical History Past Surgical Hx: other (Knee surgery) Family History Significant Family History: no pertinent family hx Social History Alcohol Use: rarely (drinks about 3 or 4 days a week with 2 or 3 beers at a time.) Smoking Status: Never smoker Drug Use: none Exam/Review of Systems Vital Signs Vitals Vital Signs Date Time Temp Pulse Resp B/P Pulse Ox O2 Delivery O2 Flow Rate FiO2 12/11/16 09:26 97.8 60 20 110/65 96 Intake and Output 12/10/16 12/10/16 12/11/16 15:00 23:00 07:00 Intake Total 490 ml Balance 490 ml Exam Constitutional: alert, oriented, well developed Psych: nl mood/affect, no complaints Head: atraumatic, normocephalic Eyes: EOMI, PERRL, nl conjunctiva, nl lids, nl sclera ENMT: nl external ears & nose, nl lips & teeth, nl nasal mucosa & septum Neck: non-tender, supple Respiratory: clear to auscultation, normal air movement Cardiovascular: nl pulses, regular rate and rhythm Gastrointestinal: bowel sounds, soft, tender (Epigastrium), No distended, No hepatomegaly, No mass, No rebound or guarding Musculoskeletal: nl extremities to inspection, nl gait and stance Extremities: normal pulses Neurological: PLASTERER SPOT II-XII intact, nl mental status, nl speech, nl strength Skin: nl turgor, No rash or lesions Lymph: nl lymph nodes Results Result Diagram: 12/11/16 0419 12/11/16418 Results 24 hrs Laboratory Tests Test 12/11/16 04:19 12/11/16 04:35 White Blood Count 5.5 Red Blood Count 4.51 L Hemoglobin 13.6 L Hematocrit 40.2 L Mean Corpuscular Volume 89.1 Mean Corpuscular Hemoglobin 30.2 Mean Corpuscular Hemoglobin Concent 33.8 Red Cell Distribution Width 14.5 Platelet Count 245 Mean Platelet Volume 9.9 # Neutrophils % 54.3 Lymphocytes % 34.1 Monocytes % 8.3 Eosinophils % 2.0 Basophils % 1.1 Nucleated Red Blood Cells % 0.0 Neutrophils # 3.0 Lymphocytes # 1.9 Monocytes # 0.5 Eosinophils # 0.1 Basophils # 0.1 Nucleated Red Blood Cells # 0.0 Sodium Level 142 Potassium Level 4.1 Chloride Level 105 Carbon Dioxide Level 29 Anion Gap 12 Blood Urea Nitrogen 19 Creatinine 0.80 Glucose Level 79 Hemoglobin A1c 5.9 Calcium Level 9.2 Magnesium Level 2.1 Total Bilirubin 0.5 Direct Bilirubin 0.00 Indirect Bilirubin 0.5 Aspartate Amino Transf (AST/SGOT) 27 Alanine Aminotransferase (ALT/SGPT) 40 Alkaline Phosphatase 56 Total Protein 6.3 Albumin 4.1 Globulin 2.20 Albumin/Globulin Ratio 1.86 Triglycerides Level 70 Cholesterol Level 100 LDL Cholesterol, Calculated 34 HDL Cholesterol 52 Cholesterol/HDL Ratio 1.9 Medications Medications Current Medications Sodium Chloride (NS) 1,000 ml @ 60 mls/hr [id number] IV Last administered on 00:00; Admin Dose 60 MLS/HR; Start 12/10/16 at 23:04 Ondansetron HCl (Zofran Inj) 4 mg Q6H PRN IV NAUSEA AND/OR VOMITING; Start 12/10 at 23:30 Morphine Sulfate (morphine) 4 mg Q4H PRN IV SEVERE PAIN LEVEL 7-10 Last administered on 12/11/16 11:48; Admin Dose 4 MG; Start 12/10/16 at 23:30 Al Hydrox/Mg Hydrox/Simethicone (Mag-Al Plus) 30 ml Q4H PRN PO GASTROINTESTINAL UPSET Last administered on 12/10/16 23:55; Admin Dose 30 ML; Start 12/10/16 at 23:30 Sucralfate (Carafate) 1 gm Q12 PO Last administered on 12/11/16 08:18; Admin Dose 1 GM; Start 12/10/16 at 23:30; Status Future Hold Mometasone Furoate (Asmanex) 1 puff BID INH Last administered on 12/11/16 09:17 ; Admin Dose 1 PUFF; Start 12/11/16 at 09:00 HALIE REEVES MD Dec 11, 2016 14:13
[2016-12-11 14:44] VITALS: BP 134/83; PULSE 59; RESP 15
[2016-12-11] MEDS: PANTOPRAZOLE (EC) 40 MG TAB PO SCH (17:29)
[2016-12-11] MEDS: SOD CHLORIDE 0.9% 1,000 ML IV SCH ×2 (18:27)
[2016-12-11 19:00] VITALS: BP 157/87; RESP 19
[2016-12-11] MEDS: AL HYDROX/MG HYDROX/SIMETH 30 ML CUP PO PRN (20:59)
[2016-12-11] MEDS ORDERED: ZOLPIDEM 5 MG TAB PO ONE (22:48)
[2016-12-12] MEDS: morphine 4 MG/ML VIAL IV PRN ×3 (01:32→10:10)
[2016-12-12] MEDS: AL HYDROX/MG HYDROX/SIMETH 30 ML CUP PO PRN ×2 (02:38→13:40)
[2016-12-12] MEDS: PANTOPRAZOLE (EC) 40 MG TAB PO SCH (06:14)
[2016-12-12] MEDS: NACL 0.9% 3 ML SYG IV SCH (06:22)
[2016-12-12] MEDS: SOD CHLORIDE 0.9% 1,000 ML IV SCH (08:16)
[2016-12-12] MEDS: MOMETASONE 0.24 GM INHALER INH SCH (08:16)
[2016-12-12] MEDS: SUCRALFATE 1 GM TAB PO SCH ×2 (08:16→13:40)
[2016-12-12 08:23] VITALS: BP 128/78; RESP 19
--- NOTE | 2016-12-12 08:36 | PN ---
Date/Time of Note Date/Time of Note DATE: 12/12/16 TIME: 08:32 Assessment/Plan VTE Prophylaxis VTE Prophylaxis Intervention: other Lines/Catheters IV Catheter Type (from Nrs): Peripheral IV Assessment/Plan Problems: (1) Acute erosive gastritis Status: Acute Comment: Please see the handwritten note from the EGD for by Dr. Oliveira. Will use proton pump inhibitors and the sucralfate. At this time I believe the patient has improved and can go home although he has some logistical difficulties with this. I want to check his pancreatic enzymes before we send him out to make sure there is not a different issue going on. (2) Asthma, moderate persistent Status: Chronic Comment: Well-controlled at present Qualifiers: Asthma complication type: uncomplicated Qualified Code: J45.40 - Moderate persistent asthma without complication (3) Abdominal pain, acute, generalized Status: Acute Comment: As above. The patient reports he does have a home to go to. 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 All his case management to assist us. Subjective 24 Hr Interval Summary Free Text/Dictation Gentleman lying in bed. He reports that his pain is only minimally better than when he was admitted. Constitutional: no complaints (No fevers chills or sweats) Respiratory: no complaints (No shortness of breath and no wheezing) Cardiovascular: no complaints Gastrointestinal: constipation (He reports a few days ago he had diarrhea now he is complaining of constipation), pain (Epigastric pain without nausea or vomiting without radiation to the back.) Genitourinary: no complaints Exam/Review of Systems Vital Signs Vitals Vital Signs Date Time Temp Pulse Resp B/P Pulse Ox O2 Delivery O2 Flow Rate FiO2 12/12/16 08:23 98.0 67 19 128/78 98 12/11/16 14:44 Room Air Intake and Output 12/11/16 12/11/16 12/12/16 15:00 23:00 07:00 Intake Total 800 ml 400 ml Output Total 1200 ml Balance -400 ml 400 ml Exam male lying in bed who appears very comfortable Constitutional: alert, oriented Neck: non-tender, supple Respiratory: clear to auscultation, normal air movement Cardiovascular: nl pulses, regular rate and rhythm Gastrointestinal: nl liver, spleen, soft, tender (Vague epigastric versus left upper quadrant tenderness) Results Result Diagram: 12/11/16 0419 12/11/16 0419 Medications Medications Current Medications Sodium Chloride (NS) 1,000 ml @ 60 mls/hr [id number] IV Last administered on 18:27; Admin Dose 60 MLS/HR; Start 12/10/16 at 23:04 Ondansetron HCl (Zofran Inj) 4 mg Q6H PRN IV NAUSEA AND/OR VOMITING; Start 12/10 at 23:30 Morphine Sulfate (morphine) 4 mg Q4H PRN IV SEVERE PAIN LEVEL 7-10 Last administered on 12/12/16 06:14; Admin Dose 4 MG; Start 12/10/16 at 23:30 Al Hydrox/Mg Hydrox/Simethicone (Mag-Al Plus) 30 ml Q4H PRN PO GASTROINTESTINAL UPSET Last administered on 12/12/16 02:38; Admin Dose 30 ML; Start 12/10/16 at 23:30 Mometasone Furoate (Asmanex) 1 puff BID INH Last administered on 12/12/16 08:16 ; Admin Dose 1 PUFF; Start 12/11/16 at 09:00 Sucralfate (Carafate) 1 gm QID PO Last administered on 12/12/16 08:16; Admin Dose 1 GM; Start 12/11/16 at 17:00 Pantoprazole (Protonix Tab) 40 mg BID@06,18 PO Last administered on 12/12/16 06 :14; Admin Dose 40 MG; Start 12/11/16 at 18:00 ANAHY WITT MD Dec 12, 2016 08:36
[2016-12-12] MEDS ORDERED: MAGNESIUM HYDROXIDE 30ML CUP PO ONE (09:00)
--- NOTE | 2016-12-12 09:04 | PN ---
Date/Time of Note Date/Time of Note DATE: 12/12/16 TIME: 08:59 Assessment/Plan VTE Prophylaxis VTE Prophylaxis Intervention: SCD's Lines/Catheters IV Catheter Type (from Nrsg): Peripheral IV Assessment/Plan Assessment/Plan Assessment: Severe epigastric abdominal pain/nausea EGD: 12/11/2016 Erosive esophagitis Moderate gastritis. Rule out H. pylori infection. Biopsies obtained Diarrhea/resolved History of asthma Plan: Continue PPI plus Carafate Wean off narcotics If able tolerate diet and manage pain without opiates outpatient follow-up appears adequate Subjective 24 Hr Interval Summary Free Text/Dictation Course reviewed with nursing staff Patient interviewed and examined EGD: 12/11/2016 Erosive esophagitis Moderate gastritis. Rule out H. pylori infection. Biopsies obtained Feels better today, was able to eat a full diet without difficulties He however, continues to request pain shots [id number] He was advised to request pain medicines only with severe pain The findings on endoscopy although significant cannot account for severe pain requiring narcotics Exam/Review of Systems Vital Signs Vitals Vital Signs Date Time Temp Pulse Resp B/P Pulse Ox O2 Delivery O2 Flow Rate FiO2 12/12/16 08:23 98.0 67 19 128/78 98 12/11/16 14:44 Room Air Intake and Output 12/11/16 12/11/16 12/12/16 15:00 23:00 07:00 Intake Total 800 ml 400 ml Output Total 1200 ml Balance -400 ml 400 ml Exam Constitutional: alert, oriented, well developed Psych: nl mood/affect, no complaints Head: atraumatic, normocephalic Eyes: EOMI, PERRL, nl conjunctiva, nl lids, nl sclera ENMT: nl external ears & nose, nl lips & teeth, nl nasal mucosa & septum Neck: non-tender, supple Respiratory: clear to auscultation, normal air movement Cardiovascular: nl pulses, regular rate and rhythm Gastrointestinal: bowel sounds, soft, tender (Epigastrium), No distended, No hepatomegaly, No mass, No rebound or guarding Musculoskeletal: nl extremities to inspection, nl gait and stance Extremities: normal pulses Neurological: TOPPER PRESS OPERATOR AUTOMATIC II-XII intact, nl mental status, nl speech, nl strength Skin: nl turgor, No rash or lesions Lymph: nl lymph nodes Results Result Diagram: 12/11/16 04112/11/16418 Medications Medications Current Medications Sodium Chloride (NS) 1,000 ml @ 60 mls/hr [id number] IV Last administered on 18:27; Admin Dose 60 MLS/HR; Start 12/10/16 at 23:04 Ondansetron HCl (Zofran Inj) 4 mg Q6H PRN IV NAUSEA AND/OR VOMITING; Start 12/10 at 23:30 Morphine Sulfate (morphine) 4 mg Q4H PRN IV SEVERE PAIN LEVEL 7-10 Last administered on 12/12/16 06:14; Admin Dose 4 MG; Start 12/10/16 at 23:30 Al Hydrox/Mg Hydrox/Simethicone (Mag-Al Plus) 30 ml Q4H PRN PO GASTROINTESTINAL UPSET Last administered on 12/12/16 02:38; Admin Dose 30 ML; Start 12/10/16 at 23:30 Mometasone Furoate (Asmanex) 1 puff BID INH Last administered on 12/12/16 08:16 ; Admin Dose 1 PUFF; Start 12/11/16 at 09:00 Sucralfate (Carafate) 1 gm QID PO Last administered on 12/12/16 08:16; Admin Dose 1 GM; Start 12/11/16 at 17:00 Pantoprazole (Protonix Tab) 40 mg BID@06,18 PO Last administered on 12/12/16 06 :14; Admin Dose 40 MG; Start 12/11/16 at 18:00 Magnesium Hydroxide (Milk Of Mag) 30 ml ONCE ONCE PO ; Start 12/12/16 at 09:00; Stop 12/12/16 at 09:01 HALIE REEVES MD Dec 12, 2016 09:04
[2016-12-12 10:18] LABS: AMYLASE 69 U/L (11-123)
[2016-12-12] MEDS ORDERED: OXYCODONE/ACETAMINOPHEN (10/325) TAB PO PRN (12:30)
[2016-12-12] MEDS ORDERED: SUCR1TAB27 PO (15:42)
[2016-12-12] MEDS ORDERED: DOCU-216 PO (15:42)
[2016-12-12] MEDS ORDERED: PANT40TA4 PO (15:42)
--- NOTE | 2016-12-12 15:43 | PDOCDIS ---
Discharge Instructions DIAGNOSIS Discharge Diagnosis: Acute pancreatitis CONDITION Patient Condition: Stable HOME CARE INSTRUCTIONS: Diet Instructions: Low Fat /Cholesterol ACTIVITY: Activity Restrictions: Slowly Increase Activity Rest between Activity Bathing Restrictions: Shower FOLLOW UP/APPOINTMENTS Appointments Followup with your primary doctor within the next 1-2 weeks. If you don't have one please let someone know, we can give you resources that may help you pick one. You may call Dr Faheem Sargent's office. he's accepting new patients Name, Degree: Faheem Sargent MD Specialty: Internal Medicine Comments: Office Address: [address] [place] [address] [place], [place] [id number] Office Office You may also call your insurance company to assign one to you. Review your medication list with your nurse before leaving and if you need new prescriptions please let your nurse know. I may have made changes to your home medications or given you new prescriptions , please let your primary doctor know as well. Stay compliant with your medications and report any side effects to your PCP or pharmacist. Return to the ER if you have any concerns and cannot reach your doctors or call your insurance company, they usually have a nurse that can help you. KAISER LOTT Dec 12, 2016 15:43
--- NOTE | 2016-12-12 16:04 | DS ---
Date/Time of Note Date/Time of Note DATE: 12/12/16 TIME: 15:59 Discharge Summary Admission/Discharge Info Admit Date/Time Dec 10, 2016 at 20:20 Discharge Date/Time 12/12/2016 Final Diagnosis Abdominal pain; Gastritis with erosive esophagitis; Asthma Patient Condition: Fair Consults Gastroenterology-Dr. Oliveira Procedures EGD; Abdominal Ct Hx of Present Illness Chief complaint: Epigastric pain 3 days This is a 61-year-old male who presented to the [facility] ER experiencing epigastric pain 3 days. Patient states that he has had similar pains in the past as well. This pain however was getting worse and was epigastric area and was not radiating. Denied any nausea vomiting or fevers. Patient also stated that yesterday he had also developed diarrhea denies any blood in the stool. He does report that a few days ago he did eat a chicken salad from outside which did not taste normal. At the [facility] ER he did receive a GI cocktail however he said that this did not provide him much relief. He was given morphine there which gave him relief. At the present time patient states that his diarrhea has somewhat improved. His pain has also improved however it does return. He does state that at times he notices that when he eats food his epigastric pain actually goes away for a short while and then returns after. Denies any burping or belching. Denies any blood in the diarrhea. He does state that he had an EGD approximately 4 years ago which was normal. Allergies: Contrast dye, ciprofloxacin, iodine, Levaquin, sulfamethoxazole, trimethoprim Medications: Qvar inhaler Hospital Course 61 yo male with a recurrent episode of abdominal pain. Direct visualization with gastritis and esophagitis. Please note pain threshold in this adult is lower than average. Exam was at a mismatch with reported symptoms. Patient improved rapidly with discontinuation of parenteral anlagesia. Stable for discharge Home Meds Active Scripts Sucralfate (Carafate) 1 Gm Tablet, 1 GM PO QID for 30 Days, TAB Prov:[facility] 12/12/16 Pantoprazole* (Pantoprazole*) 40 Mg Tablet.dr 40 MG PO BID@06,18 for 30 Days For gastritis Prov:[facility] 12/12/16 Hydrocodone/Acetaminophen (Dewey 5-325 Tablet) 1 Each Tablet, 1 EACH PO Q4H, # 20 TAB Prov:MAURICIO NOEL MD 08/12/16 Doxycycline Hyclate* (Doxycycline Hyclate*) 100 Mg Tablet.dr, 100 MG PO BID for 10 Days, TAB Prov:MAURICIO NOEL MD 08/12/16 Reported Medications Beclomethasone Dip* (Qvar 80*) 7.3 Gm Inha, 2 PUFF INH BID, INH 04/26/15 Primary Care Provider Care Physician No Primary Time spent on discharge: < 30 minutes Pending Labs Laboratory Tests Test 12/12/16 09:30 Amylase Level 69U/L (11-123) Lipase 34U/L (23-300) Hepatitis C Antibody REACTIVE (NEGATIVE) ANAHY WITT MD Dec 12, 2016 16:04
[2016-12-12] MEDS ORDERED: OXYC-431 PO (16:25)
--- NOTE | 2016-12-12 19:08 | GILP ---
DATE OF PROCEDURE: 12/12/2016 DATE OF PROCEDURE: 12/12/2016 PROCEDURE: Esophagogastroduodenoscopy with biopsies. BRIEF HISTORY AND INDICATIONS: The patient is being evaluated for severe epigastric abdominal pain. PREMEDICATION: Monitored anesthesia care by anesthesiologist. SURGEON: Halie Oliveira MD. INSTRUMENT USED: Olympus endoscope. TECHNIQUE: After informed consent, with the patient/relatives understanding the procedure, its indic ations, potential risks and complications, including but not limited to: allergic reaction, bleeding , perforation or infection, and after all pertinent questions were answered to the patients satisfac tion, the patient/relatives signed witnessed informed consent. Following this, premedication was administered slowly IV push under careful cardiovascular and respi ratory monitoring with pulse oximetry, automatic blood pressure and street sprinkler. Once the sedative effect was achieved the patient was place in the left lateral decubitus, the panen doscope was introduced and advanced under visual control. Careful examination of the upper gastrointestinal tract, both on insertion as well as withdrawal of the instrument disclosed the following findings: ESOPHAGUS: The distal esophagus shows significant erythema, edema and erosions of the mucosa. A sma ll hiatal hernia is present. STOMACH: Upon entrance to the stomach, air was insufflated, the gastric wen distended normally. Th ere was erythema and edema of the mucosa of a [id number] degree. Biopsies were obtained to r ule out H. pylori infection. PYLORUS: The pylorus appears patent and within normal limits, with no evidence of gastric outlet obs truction. DUODENUM: The duodenal mucosa was carefully examined in the duodenal bulb as well as the second port ion of the duodenum and appears unremarkable with no evidence of duodenitis, ulcer or neoplasm. The instrument was then withdrawn, the patient tolerated the procedure well and was transfer out of the endoscopy suite awake, and in good condition to continue recovery under observation IMPRESSION: 1. Erosive esophagitis. 2. Small hiatal hernia. 3. Svzxgemv-gn-stetfl gastritis, rule out H. pylori infection, biopsies obtained. PLAN: 1. The patient will be treated with proton pump inhibitor b.i.d. plus Carafate 2. Further recommendations will depend on review of biopsies, as well as patient's clinical course. Dictated By: HALIE OLIVEIRA MS/CIELO Conf#: [id number] DID#: [id number]
[2016-12-12] MEDS ORDERED: DOCUSATE SODIUM 100 MG CAP PO SCH (21:00)
== END 2016-12-12 16:45 | disposition home or self-care (01) ==
LOC: INTOOBSV 20:20 → MS1 20:20
PROVIDERS: ADMIT Internal Medicine; ATTEND Internal Medicine
DX: K29.70 Gastritis, unspecified, without bleeding (principal); K44.9 Diaphragmatic hernia without obstruction or gangrene; K20.9 Esophagitis, unspecified; J45.909 Unspecified asthma, uncomplicated; Z82.49 Family history of ischemic heart disease and other diseases of the circulatory system
CPT/HCPCS: 43239; 80053; 80061; 81003; 82150; 83036; 83690; 83735; 85025; 86803; 88305; 96374; 96376; C9113; J2250; J2270; J3010; J7030; Z7500; Z7610; 99217; G0378

== ENCOUNTER 2017-10-27 12:09 | Emergency (ER) | END 2017-10-27 12:31 | disposition home or self-care (01) ==